=== PATIENT | male | born 1950 | race Caucasian/White ===

== ENCOUNTER 2021-04-29 09:55 | Emergency (ER) | payer MEDICARE, BC ==
[~2021-04-29] VITALS: Ht 167.6 cm; Wt 58.0 kg
[~2021-04-29 09:55] MED LIST: NO HOME MEDS
[2021-04-29 10:22] VITALS: BP 124/64
[2021-04-29 11:38] LABS: CLARITY,URINE BLOODY (Clear); COLOR,URINE RED (Yellow); UA COLLECTION TYPE VOIDED
[2021-04-29 11:45] LABS: BACTERIA,URINE NONE SEEN /HPF (Neg); RBC,URINE TNTC /HPF (0-2)
[2021-04-29 11:46] LABS: SQUAMOUS EPITHELIAL CELL,UR NONE SEEN /LPF (FEW)
[2021-04-29] MEDS ORDERED: LIDOcaine 2% 10ml TOPICAL JELLY (Urojet) TP ONE (13:05)
[2021-04-29] MEDS ORDERED: SULF1TAB49 PO (14:42)
== END 2021-04-29 16:33 | disposition home or self-care (01) ==
LOC: ER 09:56
DX: N39.0 Urinary tract infection, site not specified (principal); R33.9 Retention of urine, unspecified; R31.9 Hematuria, unspecified; R30.0 Dysuria; E78.00 Pure hypercholesterolemia, unspecified; Z98.890 Other specified postprocedural states; Z79.2 Long term (current) use of antibiotics
CPT/HCPCS: 51700; 51702; 81001; 87088; 99284

== ENCOUNTER 2021-05-02 17:09 | Emergency (ER) | payer MEDICARE, BC ==
[~2021-05-02] VITALS: Ht 170.2 cm; Wt 50.0 kg
[~2021-05-02 17:09] MED LIST changes: +SULF1TAB49 PO
--- NOTE | 2021-05-02 19:53 | NUR ---
IRRIGATED BLADDER TO GET 3-WAY CROSS CATHETER WORKING AGAIN. WAS ABLE TO DRAIN SIDE PORT TO RELIEVE BLADDER PRESSURE. WAS ABLE TO GET 2 LARGE CLOTS OUT OF MAIN DRAINAGE PORT AND RECONNECT TO LEGBAG FOR POSITIVE DRAINAGE. IRRIGATED 400CC, WITH RETURN OF 900CC. PT TOLERATED WELL. EDUCATED PT ON HOW TO IRRIGATE CATHETER FOR FUTURE CLOTS. PT VERBALIZED UNDERSTANDING AND DEMONSTRATED UNDERSTANDING OF NEED FOR STERILE TECHNIQUE TO PREVENT INTRODUCING NEW BACTERIA TO CATHETER/BLADDER. SENT PT WITH SUPPLIE TO IRRIGATE AND DRAIN BLADDER. PT HAS FOLLOWUP APPT WITH UROLOGIST ON TUESDAY. EDUCATED PT ON S/S OF INFECTION, WHAT TO DO IF CATHETER CLOTS AGAIN AND WHEN TO COME BACK TO HOSPITAL FOR COMPLICATIONS. PT VERBALIZED UNDERSTANDING AND ALL QUESTIONS ANSWERED. NOTIFIED MD DARLING THAT CATHETER IS BACK WORKING AND PER MD SPRINGER FOR PT TO ATTEMPT TO IRRIGATE AT HOME IF CLOTS OFF.
[2021-05-02 20:25] VITALS: BP 122/98
== END 2021-05-02 20:30 | disposition home or self-care (01) ==
LOC: ER 17:10
DX: R33.9 Retention of urine, unspecified (principal); E78.00 Pure hypercholesterolemia, unspecified; Z88.6 Allergy status to analgesic agent; Z88.5 Allergy status to narcotic agent
CPT/HCPCS: 51702; 99284